=== PATIENT | female | born 1970 | race Caucasian/White ===

== ENCOUNTER → 2019-02-10 17:27 | Outpatient (CLI) | payer OTHER, SELFPAY ==
--- NOTE | 2019-02-10 17:31 | DI.RAD.S_ITS ---
PROCEDURE: XR FOREARM RT 2V INDICATIONS: Eval characterize bony prominence of distal ulnar styloid TECHNIQUE: 2 views of the forearm were acquired. COMPARISON: None. FINDINGS: Bones: No fractures or dislocations. No suspicious bony lesions. Soft tissues: No suspicious soft tissue calcifications or masses. IMPRESSION: No visualized acute fracture or dislocation. However, if clinical concern and/or pain persist, short interval imaging followup in 7-10 days is recommended, as occult injury cannot be definitively excluded. Dictated by: Emily Osuna M.D. on 02/10/2019 at 18:01 Approved by: Emily Osuna M.D. on 02/10/2019 at 18:02
== END ==
PROVIDERS: Family Provider Family Medicine; PCP Family Medicine; Visit Provider Physician Assistant
DX: M89.9 Disorder of bone, unspecified (principal)
CPT/HCPCS: 73090